=== PATIENT | male | born 1965 | race Hispanic/Latino ===

== ENCOUNTER 2016-09-20 15:39 | Emergency (ER) | payer OTHER ==
[~2016-09-20] VITALS: Ht 170.2 cm; Wt 100.0 kg
[2016-09-20 16:00] VITALS: BP 207/118; PULSE 88; RESP 16; O2SAT 99
[2016-09-20] MEDS ORDERED: 0.9% Sodium Chloride 1,000 ML IV ONE (16:41)
[2016-09-20] MEDS ORDERED: Ondansetron 2 mg/mL 2 mL Inj IVPUSH ONE (16:45)
[2016-09-20] MEDS ORDERED: HYDROmorphone 0.5 mg/0.5 mL iSecure Syringe IVPUSH PRN (16:45)
[2016-09-20 17:02] LABS: BASOPHILS % (AUTO) 0.3 % (0-3); EOSINOPHILS % (AUTO) 2.3 % (0-5); MONOCYTES % (AUTO) 8.4 % (4-12); Mean Corpuscular Hemoglobin 28.8 pg (27.0-35.0); Mean Corpuscular Volume 86.2 fL (81-100); NEUTROPHILS % (AUTO) 57.7 % (40-74); Platelet Count 133 bil/L (150-400)
[2016-09-20 17:15] LABS: INR 1.07 ratio
[2016-09-20 18:15] VITALS: BP 170/98; PULSE 79; O2SAT 98
--- NOTE | 2016-09-20 18:39 | ED.REPORT ---
HPI-General Illness Date of Service Sep 20, 2016 ED Provider: Celso Page MD The patient is a 51 year old male who presents to the ED with intermittent epigastric abdominal pain that began 4 days ago. Recent associated symptoms include constipation and a single episode of possible melena. Patient took Peptol Bismol a few days ago with little relief. The pain in his abdomen is exacerbated by eating. He denies any similar previous episodes of pain. Patient denies any GI history. He denies taking any blood thinners. Nursing Notes Stated Complaint: ABDOMINAL PAIN Chief Complaint: Male Abdominal Pain Nursing Notes Reviewed: Yes Allergies: Coded Allergies: morphine (Verified Allergy, Severe, STOPPED BREATHING/HIVES, 09/20/16) Scheduled Omeprazole (Omeprazole) 20 Mg Tablet.dr 40 MG PO DAILY General Time Seen by MD: 16:33 Chief Complaint Abdominal pain Hx Obtained From: Patient Arrived By: Walk-in Sudden in Onset?: No Onset Occurred: 4 days ago Symptom Duration: Since onset Location: : Abdomen Quality: Dull, Painful Radiation: : Does not radiate Severity: Current: Moderate Severity: Maximum: Moderate Associated with: Reports: Abdominal pain, Chest pain Pertinent Negative: Pt denies other symptoms Recent Healthcare: No recent doctor visit, No recent hospitalization Past Medical History Past Medical History Healthy Denies any history of GI disorders. Past Surgical History None reported. Smoking History Unknown if Ever Smoker Social History Other Social History: Good social support, Local resident Ambulatory Status Independent Review of Systems Full Review of Systems Cardiovascular: Reports: Chest pain GI: Reports: Abdominal pain, Melena Complete sys rev & neg: except as marked. Physical Exam Vital Signs Vital Signs Date Time Temp Pulse Resp B/P Pulse Ox O2 Delivery O2 Flow Rate FiO2 09/20/16 18:15 36.8 79 170/98 98 Room Air 09/20/16 16:00 36.9 88 16 207/118 99 Room Air Initial VS: Reviewed Neck: Supple, Non-tender, Full range of motion Extremities: Vascular intact, Neuro intact, No swelling, No tenderness Skin: Warm, Dry, No cyanosis Neurologic: Alert, Oriented, Nonfocal Psychiatric: Mood/affect normal, Behavior normal, Normal thought content General/Constitutional: Awake, Alert, No acute distress, Well appearing, Well developed Answering questions appropriately. Head / Eyes: Atraumatic, Normocephalic, PERRL Respiratory / Chest: Atraumatic, Breath sounds NL, Breath sounds = bilat, No respiratory distress Cardiovascular: Heart rate NL, Regular rhythm, Heart sounds NL, No gallop, No murmurs, No rubs Abdomen: Atraumatic, Soft, Non-tender, No guarding, No rebound, BS normoactive , No distention Dark brown stool Occult heme negative Interpretation & Diagnostics Lab Results Interpretation Result Diagram: 09/20/16 1648 09/20/16 1648 Test 09/20/16 16:48 White Blood Count 6.1th/mm3 (3.8-10.1) Red Blood Count 4.58mil/mm3 (4.40-5.80) Hemoglobin 13.2g/dL (13.8-17.2) Hematocrit 39.5% (41.0-50.0) Mean Corpuscular Volume 86.2fL (81-100) Mean Corpuscular Hemoglobin 28.8pg (27.0-35.0) Mean Corpuscular Hemoglobin Concent 33.4% (32.0-37.0) Red Cell Distribution Width 14.5% (12.3-15.4) Platelet Count 133bil/L (150-400) Neutrophils (%) (Auto) 57.7% (40-74) Lymphocytes (%) (Auto) 31.1% (14-46) Monocytes (%) (Auto) 8.4% (4-12) Eosinophils (%) (Auto) 2.3% (0-5) Basophils (%) (Auto) 0.3% (0-3) Prothrombin Time 11.5sec (8.1-12.5) Prothromb Time International Ratio 1.07ratio Sodium Level 142mEq/L (134-144) Potassium Level 3.6mEq/L (3.5-5.2) Chloride Level 104mEq/L (97-108) Carbon Dioxide Level 24mmol/L (18-29) Blood Urea Nitrogen 10mg/dL (6-24) Creatinine 0.62mg/dL (0.76-1.27) Estimat Glomerular Filtration Rate 145mL/min (>59) Glucose Level 183mg/dL (60-99) Calcium Level 8.9mg/dL (8.5-10.1) Magnesium Level 2.0mg/dL (1.6-2.6) Total Bilirubin 0.3mg/dL (0.0-1.2) Aspartate Amino Transf (AST/SGOT) 52U/L (0-50) Alanine Aminotransferase (ALT/SGPT) 58U/L (0-44) Alkaline Phosphatase 114U/L (25-150) Total Protein 7.8g/dL (6.4-8.4) Albumin 4.0g/dL (3.4-5.0) Lipase 55U/L (13-60) Re-Eval/Medical Decision Med Decision/Clinical Course The patient is a 51 year old male who presents to the ED with intermittent epigastric abdominal pain that began 4 days ago. Recent associated symptoms include constipation and a single episode of possible melena. Patient took Peptol Bismol a few days ago with little relief. The pain in his abdomen is exacerbated by eating. He denies any similar previous episodes of pain. Patient denies any GI history. He denies taking any blood thinners. Here in the emergency department the patient is afebrile with stable vital signs and examination as above. He has dark guaiac negative stool. Patient received the below medications: Zofran Dilaudid IV fluids Laboratory studies notable as below: CBC unremarkable CMP unremarkable except mildly transaminases Coag norm No evidence of active GI bleed. Overall presentation consistent with GERD/ gastritis. Patient's dark stool likely related to taking Pepto-Bismol. No evidence of active GI bleed at this time. Patient prescribed omeprazole. He will follow up closely with his primary care physician. Prior to discharge follow-up and return precautions were reviewed in detail with the patient who verbalized understanding and agreement with the plan. The patient was discharged in stable condition. Time of Eval: 18:55 Patient Status: Condition improved Re-Evaluation/Progress Note: The patient's symptoms have improved upon recheck. All questions are addressed. He is informed of his results and diagnosis. The patient understands and agrees with the intended treatment plan. Counseled Regarding: Diagnosis, Lab results, Need for follow-up, When/why to return to ED Discharge & Departure Primary Impression: Generalized abdominal pain Additional Impressions: GERD without esophagitis Dark stools Disposition: Home Discharge Condition All VS Reviewed: Yes Condition: Improved Patient Instructions: Acute Abdominal Pain (ED), Gastritis (ED) Additional Instructions: Thank you for seeking care at emergency room. It is difficult for us to make definitive diagnoses in the ED but we believe that you are experiencing gastric upset. Our primary goal today in the ED was to evaluate you for any life-threatening conditions. Your evaluation was reassuring. You will be discharged with a prescription for Omepraazole. Please take as directed. I recommend you limit your intake ibuprofen until your pain resolves or improves. Take up to 1000mg 3 times per day of Tylenol for pain. You should follow-up with your primary doctor in the next week. You should return to the ED immediately if you develop worsening pain, fevers, vomiting, bloody stool, chest pain, lightheadedness, weakness or any other concerning signs or symptoms. Thank you for letting us partake in your care today. Referrals: Andrew Quiros DO (PCP) Scribe Attestation Portions of this note were transcribed by Pato Flores. I, Dr. Page personally performed the history, physical exam and medical decision-making; I reviewed and confirmed the accuracy of the information in the transcribed note. copies to: Andrew Quiros Beck O MD Sep 20, 2016 18:39 PATO FLORES Sep 20, 2016 18:41
[2016-09-20] MEDS ORDERED: OMEP20TA86 PO (19:03)
== END 2016-09-20 19:06 | disposition home or self-care (01) ==
LOC: SED 15:39
DX: K21.9 Gastro-esophageal reflux disease without esophagitis (principal); K92.1 Melena; Z88.5 Allergy status to narcotic agent